=== PATIENT | male | born 1940 | race Caucasian/White ===

== ENCOUNTER 2018-06-11 12:49 | Emergency (ER) | payer OTHER ==
--- NOTE | 2018-06-11 13:19 | EDPHY ---
HPI/HX/ROS/PE/MDM Narrative: CHIEF COMPLAINT: "Whooshing sensation" in chest; concerned BP is low HPI: The patient is a 77 y/o male with a history of hypertension including prior episode of hypertensive urgency in June 2016 complaining of a "whooshing sensation" on the left side of his anterior chest that began yesterday while driving. He reports he can feel the sensation every 3rd heart beat or so. He records his blood pressure frequently and takes Norvasc as needed depending on readings. He generally measures his BP between 160/100 to 130/80 throughout the day, but today noticed his blood pressure was "low" at 116 /70. This concerned him in conjunction with the "whooshing" sensation so he presented to the ED for evaluation. He denies chest pain, dyspnea, malaise, dizziness, recent illness, recent fever, or any other complaints. He is requesting only a minimal work up and would like to return home as soon as possible. REVIEW OF SYSTEMS: A comprehensive 10 system review of systems is otherwise negative aside from elements mentioned in the history of present illness. PMH: Hypertension - Norvasc; BPH, chronic leukocytosis; bilateral hip replacements; appendectomy SOCIAL HISTORY: Walks 1 mile/day. PCP: Dr. Alina Ortiz Admission 07/26/16 for dizziness and hypertensive urgency. Echocardiogram at that time had no focal wall motion abnormalities, some left hypertrophy and diastolic dysfunction. PHYSICAL EXAM: General:Patient is alert, in no acute distress. ENT:Eyes are normal to inspection. ENT inspection normal. Neck: Normal inspection. Full range of motion. Respiratory:No respiratory distress. Breath sounds normal bilaterally. Cardiovascular: Occasional PACs, otherwise regular rate and rhythm. 2/6 systolic murmur. Strong peripheral pulses. Normal cap refill. Abdomen:The abdomen is nontender to palpation. There are no peritoneal signs. Back: Normal to inspection. No tenderness to palpation. Skin: Normal color. No rash. Warm and dry. Extremities: Normal appearance. Full range of motion. Neuro: Oriented x3. Normal motor function. Normal sensory function. ED Course: The patient is a 77 y/o male with a history of hypertension who presents with a 1-day history of a "whooshing sound" that he can feel along his left anterior chest below the level of his heart. He is also concerned his systolic blood pressure is low around 115/70. He does have a 2/6 systolic murmur and an occasional PAC on exam. He is normotensive with no evidence of hypertensive emergency or urgency. He is requesting a minimal work up only. Plan for IV, POC troponin, EKG. The 12 lead EKG was interpreted by myself. Sinus mechanism. See hard copy and/ or "tracemaster" electronic copy for interpretation. Negative troponin. 1342: Reassessed patient and discussed findings. He is refusing a chest x-ray or further interventions and would like to be discharged home. Recommended following up with his PCP this week. Return precautions discussed. MDM: This patient presents to the ED essentially for two reasons - he is concerned that his systolic of 117 is too low, and because he is hearing a "whoosing" sound in his chest. I reassured him that his SBP is actually normal, which he was surprised about. He states he does not feel at all bad, has no chest pain, and was able to exert himself gardening without difficulty. The "whoosing" sound remains a mystery. The patient has a 2/6 systolic murmur on exam but no other abnormal sounds were noted. The patient was very interested in leaving the ED as soon as possible and has refused basically all other testing, including CXR. He understands that I am unable to rule out potentially serious disease without further testing and appears competent to make this decision. - Data Points Laboratory Results: Laboratory Results 06/11/18 13:12 06/11/18 13:12 06/11/18 06/11/18 06/11/18 13:14 13:12 13:12 WBC 6.87 10^3/uL 10^3/uL (3.80-9.50) RBC 5.20 10^6/uL 10^6/uL (4.40-6.38) Hgb 15.3 g/dL g/dL (13.7-17.5) Hct 45.4 % % (40.0-51.0) MCV 87.3 fL fL (81.5-99.8) MCH 29.4 pg pg (27.9-34.1) MCHC 33.7 g/dL g/dL (32.4-36.7) RDW 14.3 % % (11.5-15.2) Plt Count 558 10^3/uL H 10^3/uL (150-400) MPV 9.2 fL fL (8.7-11.7) Neut % (Auto) 63.1 % % (39.3-74.2) Lymph % (Auto) 25.8 % % (15.0-45.0) Bee % (Auto) 7.3 % % (4.5-13.0) Eos % (Auto) 2.9 % % (0.6-7.6) Baso % (Auto) 0.3 % % (0.3-1.7) Nucleat RBC Rel Count 0.0 % % (0.0-0.2) Absolute Neuts (auto) 4.34 10^3/uL 10^3/uL (1.70-6.50) Absolute Lymphs (auto) 1.77 10^3/uL 10^3/uL (1.00-3.00) Absolute Monos (auto) 0.50 10^3/uL 10^3/uL (0.30-0.80) Absolute Eos (auto) 0.20 10^3/uL 10^3/uL (0.03-0.40) Absolute Basos (auto) 0.02 10^3/uL 10^3/uL (0.02-0.10) Absolute Nucleated RBC 0.00 10^3/uL 10^3/uL (0-0.01) Immature Gran % 0.6 % % (0.0-1.1) Immature Gran # 0.04 10^3/uL 10^3/uL (0.00-0.10) Sodium 140 mEq/L mEq/L (135-145) Potassium 4.1 mEq/L mEq/L (3.3-5.0) Chloride 107 mEq/L mEq/L (97-110) Carbon Dioxide 25 mEq/l mEq/l (22-31) Anion Gap 8 mEq/L mEq/L (8-16) BUN 14 mg/dL mg/dL (7-23) Creatinine 0.7 mg/dL mg/dL (0.7-1.3) Estimated GFR > 60 Glucose 137 mg/dL H mg/dL (70-100) Calcium 9.3 mg/dL mg/dL (8.5-10.4) POC Troponin I 0.01 ng/mL ng/mL (0.00-0.08) Point of Care Test Results: Chemistry 06/11/18 13:14 POC Troponin I 0.01 ng/mL ng/mL (0.00-0.08) General Time Seen by Provider: 06/11/18 13:05 Initial Vital Signs: Initial Vital Signs Temperature (C) 36.7 C 06/11/18 12:51 Heart Rate 95 06/11/18 12:51 Respiratory Rate 18 06/11/18 12:51 Blood Pressure 131/76 H 06/11/18 12:51 O2 Sat (%) 93 06/11/18 12:51 O2 Delivery Mode Room Air Allergies/Adverse Reactions: vancomycin Allergy (Severe, Verified 06/11/18 12:50) Hives Home Medications: Medication Instructions Recorded Tamsulosin HCl [Flomax 0.4 MG (*)] 0.4 mg PO DAILY 07/27/13 amLODIPine BESYLATE [Norvasc 5 mg 5 mg PO DAILY #30 tab 07/27/16 (*)] Departure - Departure Disposition: Home, Routine, Self-Care Clinical Impression: Palpitations Condition: Good Instructions: Heart Palpitations (ED) Additional Instructions: Please continue all medications as directed. Follow up with your primary care provider as needed for continued symptoms. Return to the ED for worsening of condition. Referrals: Alina Ortiz MD [Primary Care Provider] - As per Instructions Report Scribed for: Bob Umana Report Scribed by: Kristy Levy Date of Report: 06/11/18 Time of Report: 13:20 Physician Review and Approval Statement: Portions of this note were transcribed by an ED scribe. I personally performed the history, physical exam, and medical decision making; and confirm the accuracy of the information in the transcribed note.
[2018-06-11 13:24] LABS: PLATELET COUNT 558 10^3/uL (150-400)
[2018-06-11 13:50] VITALS: BP 141/95
--- NOTE | 2018-06-15 05:23 | CPEKG ---
Test Reason : OPEN Blood Pressure : / mmHG Vent. Rate : 088 BPM Atrial Rate : 088 BPM P-R Int : 183 ms QRS Dur : 114 ms QT Int : 388 ms P-R-T Axes : 049 -55 046 degrees QTc Int : 470 ms Sinus rhythm Incomplete RBBB and LAFB Confirmed by Fco Spicer ([id number]) on 06/15/2018 5:23:00 AM Referred By: Confirmed By:Fco Spicer
== END 2018-06-11 13:48 | disposition home or self-care (01) ==
DX: R00.2 Palpitations (principal); I10 Essential (primary) hypertension
CPT/HCPCS: 84484-PO